=== PATIENT | female | born 1970 | race Two or more races ===

== ENCOUNTER 2024-04-22 09:57 | Outpatient (RCR) | payer MEDICAID, SELFPAY | END 2024-05-16 23:59 | disposition home or self-care (01) | LOC: SCTC 09:57 | PROVIDERS: PCP Physician Assistant; Referring Provider Physician Assistant; Visit Provider Nurse Practitioner Family | DX: C50.111 Malignant neoplasm of central portion of right female breast (principal); Z17.0 Estrogen receptor positive status [ER+]; Z17.21 Progesterone receptor positive status; Z17.32 Human epidermal growth factor receptor 2 negative status; Z79.811 Long term (current) use of aromatase inhibitors; Z90.11 Acquired absence of right breast and nipple | CPT/HCPCS: 99212; G0463 ==

== ENCOUNTER → 2024-04-24 | Outpatient (CLI) | payer MEDICAID, SELFPAY ==
--- NOTE | 2024-04-24 09:45 | XR_ITS ---
Examination: Abdomen AP single view Technique: AP portable supine abdomen, single view Exam date and time: April 24, 2024 0955 hours INDICATIONS: Flank pain months. FINDINGS: Moderate stool throughout the colon No renal or ureteral calculi IMPRESSION: No renal or ureteral calculi
== END | disposition home or self-care (01) ==
PROVIDERS: PCP Physician Assistant; Referring Provider Surgery; Visit Provider Surgery
DX: N20.0 Calculus of kidney (principal)
CPT/HCPCS: 74018

== ENCOUNTER → 2024-07-08 | Outpatient (CLI) | payer MEDICAID, SELFPAY ==
--- NOTE | 2024-07-08 09:30 | XR_ITS ---
Examination: Screening digital mammography, unilateral right left Computer aided detection 3-D breast Tomosynthesis, unilateral Date and time of exam: July 08, 2024 0916 hours Compared to mammograms dating to May 27, 2019 Indication: Screening Technique: Nonmagnified MLO, CC views of the left breast to been obtained, reconstructed from 3-D Tomosynthesis images. R2 computer aided detection program utilized for evaluation of suspicious masses and/or abnormal calcifications. 3-D Tomosynthesis images obtained. Findings: Scattered areas of fibroglandular density. Benign calcifications. No interval suspicious masses Impression: BI-RADS category II Benign findings Recommend 1 year follow-up mammogram.
== END | disposition home or self-care (01) ==
LOC: CDIM 09:08
PROVIDERS: PCP Physician Assistant; Referring Provider Nurse Practitioner Family; Visit Provider Nurse Practitioner Family
DX: Z12.31 Encounter for screening mammogram for malignant neoplasm of breast (principal); R92.322 Mammographic fibroglandular density, left breast; R92.1 Mammographic calcification found on diagnostic imaging of breast; C50.111 Malignant neoplasm of central portion of right female breast
CPT/HCPCS: 77063; 77067

== ENCOUNTER 2024-07-16 11:04 | Outpatient (RCR) | payer MEDICAID, SELFPAY | END 2024-07-16 23:59 | disposition home or self-care (01) | LOC: SCTC 11:04 | PROVIDERS: PCP Physician Assistant; Referring Provider Physician Assistant; Visit Provider Nurse Practitioner Family | DX: C50.111 Malignant neoplasm of central portion of right female breast (principal); Z17.0 Estrogen receptor positive status [ER+]; Z17.21 Progesterone receptor positive status; Z17.32 Human epidermal growth factor receptor 2 negative status; Z90.11 Acquired absence of right breast and nipple; M85.88 Other specified disorders of bone density and structure, other site; Z79.811 Long term (current) use of aromatase inhibitors; Z98.51 Tubal ligation status; Z79.83 Long term (current) use of bisphosphonates; R20.0 Anesthesia of skin | CPT/HCPCS: 99212; G0463 ==

== ENCOUNTER 2024-11-05 10:50 | Outpatient (RCR) | payer MEDICAID, SELFPAY | END 2024-11-16 23:59 | disposition home or self-care (01) | LOC: SCTC 10:50 | PROVIDERS: PCP Physician Assistant; Referring Provider Physician Assistant; Visit Provider Nurse Practitioner Family | DX: C50.111 Malignant neoplasm of central portion of right female breast (principal); Z17.0 Estrogen receptor positive status [ER+]; Z17.21 Progesterone receptor positive status; Z17.32 Human epidermal growth factor receptor 2 negative status; Z90.11 Acquired absence of right breast and nipple; M85.88 Other specified disorders of bone density and structure, other site; Z79.811 Long term (current) use of aromatase inhibitors; Z79.83 Long term (current) use of bisphosphonates | CPT/HCPCS: 99212; G0463 ==

== ENCOUNTER → 2024-12-24 | Outpatient (CLI) | payer MEDICAID, SELFPAY ==
--- NOTE | 2024-12-24 13:20 | XR_ITS ---
Examination: Bone densitometry Date and time of exam: December 24, 2024, 1320 hours INDICATIONS: Menopause age 46 right breast carcinoma diagnosis, vitamin D 1 month, personal history osteopenia Technique: Lumbar spine and hip total bone mineralization values of an calculated. Peak reference and age match control results have been displayed. Findings: Lumbar spine total bone mineralization is 0.914 gm/cm2. This is 1.2 standard deviations below peak reference. This is 0.3 standard deviations below age-matched controls. Hip total bone mineralization is 1.003 gm/cm2 This is 0.3 standard deviations above peak reference. This is 29 standard deviations above age-matched controls Impression: There is osteopenia based on lumbar spine measurements. There is normal mineralization based on hip measurements Lumbar mineralization is increased 6.3% compared with September 29, 2022 Hip mineralization is increased 11.7% compared with September 29, 2022
== END | disposition home or self-care (01) ==
LOC: CDIM 12:47
PROVIDERS: PCP Physician Assistant; Referring Provider Nurse Practitioner Family; Visit Provider Nurse Practitioner Family
DX: M85.89 Other specified disorders of bone density and structure, multiple sites (principal); C50.111 Malignant neoplasm of central portion of right female breast
CPT/HCPCS: 77080

== ENCOUNTER → 2025-01-26 | Outpatient (CLI) | payer MEDICAID, SELFPAY ==
--- NOTE | 2025-01-26 10:00 | XR_ITS ---
EXAMINATION: Ultrasound soft tissue right shoulder TECHNIQUE: Grayscale sonographic images soft tissue right shoulder Date and time: January 26, 2025, 0954 hours INDICATIONS: Palpable lump right shoulder noticed beginning 6 months ago. FINDINGS: Soft tissue mass at the area of concern 2.3 x 0.4 x 0.9 cm IMPRESSION: Soft tissue mass at the area of concern, 2.3 x 1.4 x 1.9 cm, consider lipoma Recommend 3-month follow-up
== END | disposition home or self-care (01) ==
PROVIDERS: PCP Physician Assistant; Referring Provider Physician Assistant; Visit Provider Physician Assistant
DX: R22.31 Localized swelling, mass and lump, right upper limb (principal)
CPT/HCPCS: 76882

== ENCOUNTER 2025-02-05 09:53 | Outpatient (RCR) | payer MEDICAID, SELFPAY | END 2025-02-15 23:59 | disposition home or self-care (01) | LOC: SCTC 09:53 | PROVIDERS: PCP Physician Assistant; Referring Provider Physician Assistant; Visit Provider Nurse Practitioner Family | DX: C50.111 Malignant neoplasm of central portion of right female breast (principal); Z17.0 Estrogen receptor positive status [ER+]; Z17.21 Progesterone receptor positive status; Z17.32 Human epidermal growth factor receptor 2 negative status; Z90.11 Acquired absence of right breast and nipple; M85.88 Other specified disorders of bone density and structure, other site; Z79.811 Long term (current) use of aromatase inhibitors | CPT/HCPCS: 99212; G0463 ==

== ENCOUNTER 2025-02-24 08:26 | Outpatient (RCR) | payer MEDICAID, SELFPAY | END 2025-03-18 23:59 | disposition home or self-care (01) | LOC: SCTC 08:26 | PROVIDERS: PCP Physician Assistant; Referring Provider Physician Assistant; Visit Provider Internal Medicine Hematology & Oncology | DX: C50.111 Malignant neoplasm of central portion of right female breast (principal); Z17.0 Estrogen receptor positive status [ER+]; Z17.21 Progesterone receptor positive status; Z17.32 Human epidermal growth factor receptor 2 negative status; Z90.11 Acquired absence of right breast and nipple; Z79.811 Long term (current) use of aromatase inhibitors; M85.88 Other specified disorders of bone density and structure, other site | CPT/HCPCS: 36415 ==